=== PATIENT | male | born 1965 | race Two or more races ===

== ENCOUNTER 2017-06-10 21:03 | Emergency (ER) | payer OTHER ==
[~2017-06-10] VITALS: Ht 172.7 cm; Wt 81.6 kg
[2017-06-10] MEDS ORDERED: LIDOCAINE 1% INJ 50 ML MDV IJ ONE ×2 (23:00→23:22)
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
--- NOTE | 2017-06-10 23:35 | NUR ---
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
[2017-06-11 00:10] VITALS: BP 133/86
== END 2017-06-11 00:11 | disposition home or self-care (01) ==
LOC: ER 21:10
DX: L03.012 Cellulitis of left finger (principal)
CPT/HCPCS: 10060; 73140; 99284; A4606; J3490; Z7610; A6402

== ENCOUNTER 2019-02-25 14:37 | Emergency (ER) | payer MEDICAID, OTHER ==
[~2019-02-25] VITALS: Ht 170.2 cm; Wt 81.6 kg
[2019-02-25] MEDS ORDERED: IPRATROPIUM NEB FS 0.5 MG/2.5 ML AMPUL.NEB NEB ONE (16:00)
[2019-02-25] MEDS ORDERED: ALBUTEROL FS 2.5 MG/3 ML VIAL.NEB NEB ONE (16:00)
[2019-02-25] MEDS ORDERED: IPRATROPIUM NEB FS 0.5 MG/2.5 ML AMPUL.NEB ONE (16:31)
[2019-02-25] MEDS ORDERED: ALBUTEROL FS 2.5 MG/3 ML VIAL.NEB ONE (16:31)
--- NOTE | 2019-02-25 16:51 | NUR ---
The patient was discharged in stable condition; no acute events reported. The patient was instructed to follow up with his primary care physician; verbal last understanding of care
[2019-02-25 16:53] VITALS: BP 145/78
== END 2019-02-25 16:54 | disposition home or self-care (01) ==
LOC: ER 14:37
DX: J06.9 Acute upper respiratory infection, unspecified (principal); J98.01 Acute bronchospasm; R09.81 Nasal congestion; R42 Dizziness and giddiness; Z87.891 Personal history of nicotine dependence; Z60.2 Problems related to living alone

== ENCOUNTER 2020-05-25 11:17 | Emergency (ER) | payer MEDICAID, OTHER ==
[~2020-05-25] VITALS: Ht 167.6 cm; Wt 81.6 kg
--- NOTE | 2020-05-25 12:17 | NUR ---
covid swab test done and sent to lab
--- NOTE | 2020-05-25 12:30 | NUR ---
Patient discharged to home in stable condition. Written and verbal after care instructions given. Patient verbalizes understanding of instruction. SELF -QUARANTINE INSTRUCTED THE PATIENT NEEDS TO FOLLOW UP WITH HIS COVID RESULTS THIS SATURDAY - 05/27/2020 OFF WORK UNTIL THEN THE PATIENT VERBALIZED UNDERSTANDING OF CARE
[2020-05-25 12:32] VITALS: BP 159/98
== END 2020-05-25 12:34 | disposition home or self-care (01) ==
LOC: ER 11:27
DX: U07.1 COVID-19 (principal); R50.9 Fever, unspecified; R51.9 Headache, unspecified; R03.0 Elevated blood-pressure reading, without diagnosis of hypertension
CPT/HCPCS: 87804; 99283; C9803; U0003

== ENCOUNTER 2020-06-06 21:15 | Emergency (ER) | payer OTHER ==
[~2020-06-06] VITALS: Ht 175.3 cm; Wt 81.6 kg
[2020-06-06 21:52] LABS: BASOPHILS # (AUTO) 0.1 /CMM (0.0-0.2); BASOPHILS % (AUTO) 0.8 % (0.0-2.0); HEMATOCRIT 41 % (39-51); HEMOGLOBIN 13.6 g/dL (13.5-17.5); LYMPHOCYTES # (AUTO) 1.9 /CMM (0.8-4.8); LYMPHOCYTES % (AUTO) 16.9 % (20.0-44.0); MEAN CORPUSCULAR HGB CONC 34 g/dl (31.0-36.0); MEAN CORPUSCULAR VOLUME 86 fL (80-96); MONOCYTES # (AUTO) 0.8 /CMM (0.1-1.30); MONOCYTES % (AUTO) 7.1 % (2.0-12.0); NEUTROPHILS # (AUTO) 8.2 /CMM (1.8-8.9); NEUTROPHILS % (AUTO) 73.2 % (43.0-81.0); PLATELET COUNT (AUTO) 319 /CMM (150-450); RED BLOOD CELL COUNT(AUTO) 4.71 MIL/uL (4.5-6.0); WHITE BLOOD COUNT (AUTO) 11.2 K/uL (4.3-11.0)
[2020-06-06] MEDS ORDERED: IV NS 0.9% 1,000 ML BAG IV ONE (22:00)
--- NOTE | 2020-06-06 22:03 | NUR ---
C/O SOB. FROM HOME. COVID (+) POSITIVE ON THE May. AAOX4. BREATHING EVENLY AND UNLABORED ON ROOM AIR. CONNECTED TO MONITOR.
[2020-06-06 22:05] LABS: CALCIUM, SERUM 8.8 mg/dL (8.5-10.1); CARBON DIOXIDE 24 mmol/L (21-32); CHLORIDE 103 mmol/L (98-107); GLUCOSE 200 mg/dL (74-106); POTASSIUM 3.4 mmol/L (3.5-5.1); SODIUM SERUM 136 mmol/L (136-145); UREA NITROGEN, BLOOD 14 mg/dL (7-18)
[2020-06-06 22:17] LABS: ALANINE AMINOTRANSFERASE 137 U/L (12-78); ALBUMIN 3.2 g/dL (3.4-5.0); ALKALINE PHOSPHATASE 140 U/L (46-116); ASPARTATE AMINOTRANSFERASE 119 U/L (15-37); BILIRUBIN,DIRECT 0.5 mg/dL (0.0-0.2); BILIRUBIN,TOTAL 0.9 mg/dL (0.2-1.0); TOTAL PROTEIN, SERUM 7.6 g/dL (6.4-8.2)
[2020-06-06 22:42] LABS: D-DIMER 0.73 mg/L(FEU (0.17-0.50)
[2020-06-06] MEDS ORDERED: IOHEXOL-350 100 ML VIAL IV ONE (23:00)
[2020-06-06] MEDS ORDERED: IV NS 0.9% 250 ML IV ONE (23:01)
--- NOTE | 2020-06-06 23:15 | NUR ---
SENT TO [facility]
--- NOTE | 2020-06-06 23:56 | NUR ---
Patient discharged to home in stable condition. Written and verbal after care instructions given. Patient verbalizes understanding of instruction.IV removed. Catheter intact and site benign. Pressure and 4x4 applied to site. No bleeding noted.pt. ambulatory with a steady gait
[2020-06-06 23:57] VITALS: BP 107/85
== END 2020-06-06 23:58 | disposition home or self-care (01) ==
LOC: ER 21:16
DX: R07.89 Other chest pain (principal); U07.1 COVID-19; R73.9 Hyperglycemia, unspecified; R79.1 Abnormal coagulation profile; R91.8 Other nonspecific abnormal finding of lung field; R94.31 Abnormal electrocardiogram [ECG] [EKG]
CPT/HCPCS: 36415; 71045; 71275; 80048; 80076; 83605; 84484; 85025; 85378; 85730; 87040 ×2; 93005; 96360; 99285; J7030; J7050; Q9967

== ENCOUNTER 2021-10-13 15:41 | Emergency (ER) | payer OTHER ==
[~2021-10-13] VITALS: Ht 167.6 cm; Wt 93.0 kg
[2021-10-13 15:48] VITALS: BP 145/92
--- NOTE | 2021-10-13 15:53 | NUR ---
SEEN BY DR CHI,X-RAY ORDERED
[2021-10-13] MEDS ORDERED: KETOROLAC TROMETHAMINE INJ 30 MG/ML VIAL ONE (15:59)
[2021-10-13] MEDS ORDERED: KETOROLAC TROMETHAMINE INJ 30 MG/ML VIAL IM ONE (16:00)
--- NOTE | 2021-10-13 16:00 | NUR ---
DETECTIVE CHIEF AT BEDSIDE FOR XRAY.
[2021-10-13] MEDS ORDERED: ACET-2605 PO (16:57)
[2021-10-13] MEDS ORDERED: IBUP-1957 PO (16:57)
--- NOTE | 2021-10-13 17:10 | NUR ---
Patient discharged to home in stable condition. Written and verbal after care instructions given. Patient verbalizes understanding of instruction.
== END 2021-10-13 17:11 | disposition home or self-care (01) ==
LOC: ER 15:54
DX: M71.522 Other bursitis, not elsewhere classified, left elbow (principal); Z60.2 Problems related to living alone; W18.39XA Other fall on same level, initial encounter; Y93.89 Activity, other specified; Y92.89 Other specified places as the place of occurrence of the external cause; Y99.8 Other external cause status
CPT/HCPCS: 73080; 96372; 99283; J1885

== ENCOUNTER 2022-01-06 11:07 | Emergency (ER) | payer OTHER ==
[~2022-01-06] VITALS: Ht 167.6 cm; Wt 93.0 kg
[~2022-01-06 11:07] MED LIST: ACET-2605 PO; IBUP-1957 PO
--- NOTE | 2022-01-06 11:25 | NUR ---
Pt states "PMD gave me medication but sometimes I forget" Denies any symptom
[2022-01-06] MEDS ORDERED: ACETAMINOPHEN ES 500 MG TABLET ONE (11:35)
[2022-01-06 11:38] VITALS: BP 139/95
--- NOTE | 2022-01-06 11:38 | NUR ---
Patient discharged to home in stable condition. Written and verbal after care instructions given. Patient verbalizes understanding of instruction.
[2022-01-06] MEDS ORDERED: MECL-159 PO (11:39)
[2022-01-06] MEDS ORDERED: ROSU20TA32 PO (11:39)
[2022-01-06] MEDS ORDERED: AMLO-212 PO (11:39)
[2022-01-06] MEDS ORDERED: ACETAMINOPHEN ES 500 MG TABLET PO ONE (12:00)
== END 2022-01-06 11:39 | disposition home or self-care (01) ==
LOC: ER 11:15
DX: I10 Essential (primary) hypertension (principal); Z60.2 Problems related to living alone

== ENCOUNTER 2022-04-28 14:53 | Emergency (ER) | payer MEDICAID, OTHER ==
[~2022-04-28] VITALS: Ht 167.6 cm; Wt 94.3 kg
[~2022-04-28 14:53] MED LIST changes: -ACET-2605 PO; +AMLO-212 PO; -IBUP-1957 PO; +MECL-159 PO; +ROSU20TA32 PO
--- NOTE | 2022-04-28 15:05 | NUR ---
BIBS C/O LIGHTHEADED, FEELING "FAINT" NAUSEA SINCE YESTERDAY. AMBULATORY, PLACED ON BED,AAOX4, BREATHING EVEN AND UNLABORED SATURATING AT 97%RA
[2022-04-28] MEDS ORDERED: IV NS 0.9% 1,000 ML BAG IV ONE (15:30)
--- NOTE | 2022-04-28 15:50 | NUR ---
BLOOD DRAWN AND SENT TO LAB
[2022-04-28 16:06] LABS: BASOPHILS % (AUTO) 0.4 % (0.0-2.0); EOSINOPHILS % (AUTO) 0.6 % (0.0-6.0); HEMATOCRIT 42 % (39-51); LYMPHOCYTES # (AUTO) 1.4 K/uL (0.8-4.8); LYMPHOCYTES % (AUTO) 12.4 % (20.0-44.0); MEAN CORPUSCULAR HGB CONC 34 g/dl (31.0-36.0); MEAN CORPUSCULAR VOLUME 86 fL (80-96); MONOCYTES # (AUTO) 0.7 K/uL (0.1-1.30); MONOCYTES % (AUTO) 5.6 % (2.0-12.0); NEUTROPHILS # (AUTO) 9.4 K/uL (1.8-8.9); PLATELET COUNT (AUTO) 202 K/uL (150-450); RED BLOOD CELL COUNT(AUTO) 4.82 MIL/uL (4.5-6.0); WHITE BLOOD COUNT (AUTO) 11.6 K/uL (4.3-11.0)
[2022-04-28 16:38] LABS: ALANINE AMINOTRANSFERASE 47 U/L (12-78); ALBUMIN 3.8 g/dL (3.4-5.0); ALKALINE PHOSPHATASE 91 U/L (46-116); ASPARTATE AMINOTRANSFERASE 37 U/L (15-37); BILIRUBIN,DIRECT 0.4 mg/dL (0.0-0.2); BILIRUBIN,TOTAL 0.9 mg/dL (0.2-1.0); CALCIUM, SERUM 8.8 mg/dL (8.5-10.1); CARBON DIOXIDE 29 mmol/L (21-32); CHLORIDE 106 mmol/L (98-107); GLUCOSE 136 mg/dL (74-106); POTASSIUM 3.5 mmol/L (3.5-5.1); SODIUM SERUM 141 mmol/L (136-145); TOTAL PROTEIN, SERUM 7.6 g/dL (6.4-8.2); UREA NITROGEN, BLOOD 12 mg/dL (7-18)
--- NOTE | 2022-04-28 17:25 | NUR ---
WIFES NUMBER IS [phone]
[2022-04-28] MEDS ORDERED: ACETAMINOPHEN ES 500 MG TABLET ONE (17:39)
--- NOTE | 2022-04-28 17:43 | NUR ---
IV removed. Catheter intact and site benign. Pressure and 4x4 applied to site. No bleeding noted.Patient discharged to home in stable condition. Written and verbal after care instructions given. Patient verbalizes understanding of instruction.
[2022-04-28 17:49] VITALS: BP 135/85
[2022-04-28] MEDS ORDERED: ACETAMINOPHEN ES 500 MG TABLET PO ONE (18:00)
== END 2022-04-28 17:43 | disposition home or self-care (01) ==
LOC: ER 15:02
DX: R55 Syncope and collapse (principal); I10 Essential (primary) hypertension; E78.5 Hyperlipidemia, unspecified; Z60.2 Problems related to living alone; Z79.899 Other long term (current) drug therapy
CPT/HCPCS: 99285; 96360; 70450; 71045; 93005; 85025; 80048; 80076; 36415; 84484; 82962; J7030

== ENCOUNTER 2023-05-08 10:09 | Emergency (ER) | payer OTHER ==
[~2023-05-08] VITALS: Ht 170.2 cm; Wt 90.7 kg
[2023-05-08 10:58] LABS: BASOPHILS # (AUTO) 0.1 K/uL (0.0-0.2); BASOPHILS % (AUTO) 1.1 % (0.0-2.0); EOSINOPHILS % (AUTO) 0.5 % (0.0-6.0); HEMATOCRIT 42 % (39-51); HEMOGLOBIN 14.3 g/dL (13.5-17.5); LYMPHOCYTES # (AUTO) 1.8 K/uL (0.8-4.8); LYMPHOCYTES % (AUTO) 32.6 % (20.0-44.0); MEAN CORPUSCULAR HEMOGLOBIN 30 PG (26.0-33.0); MEAN CORPUSCULAR HGB CONC 34 g/dl (31.0-36.0); MEAN CORPUSCULAR VOLUME 87 fL (80-96); MONOCYTES # (AUTO) 0.4 K/uL (0.1-1.30); MONOCYTES % (AUTO) 6.7 % (2.0-12.0); NEUTROPHILS # (AUTO) 3.3 K/uL (1.8-8.9); NEUTROPHILS % (AUTO) 59.1 % (43.0-81.0); PLATELET COUNT (AUTO) 185 K/uL (150-450); RED BLOOD CELL COUNT(AUTO) 4.82 MIL/uL (4.5-6.0); RED CELL DISTRIBUTION WIDTH 13.1 % (11.5-15.0); WHITE BLOOD COUNT (AUTO) 5.7 K/uL (4.3-11.0)
[2023-05-08 11:03] LABS: INR 1.06 (0.91-1.10); PROTHROMBIN TIME 11.2 SECS (9.2-11.1)
[2023-05-08 11:07] LABS: CALCIUM, SERUM 9.1 mg/dL (8.5-10.1); CARBON DIOXIDE 26 mmol/L (21-32); CHLORIDE 103 mmol/L (98-107); CREATININE 0.8 mg/dL (0.6-1.3); GLUCOSE 110 mg/dL (74-106); POTASSIUM 3.5 mmol/L (3.5-5.1); SODIUM SERUM 136 mmol/L (136-145); UREA NITROGEN, BLOOD 7 mg/dL (7-18)
[2023-05-08 11:13] LABS: ALANINE AMINOTRANSFERASE 35 U/L (12-78); ALBUMIN 3.9 g/dL (3.4-5.0); ALKALINE PHOSPHATASE 90 U/L (46-116); ASPARTATE AMINOTRANSFERASE 22 U/L (15-37); BILIRUBIN,DIRECT 0.2 mg/dL (0.0-0.2); BILIRUBIN,TOTAL 0.7 mg/dL (0.2-1.0); TOTAL PROTEIN, SERUM 7.9 g/dL (6.4-8.2)
[2023-05-08] MEDS ORDERED: ROSU10TA2 PO (12:06)
[2023-05-08] MEDS ORDERED: MECLIZINE HCL 12.5 MG TABLET PO ONE (12:30)
[2023-05-08] MEDS ORDERED: MECLIZINE HCL 12.5 MG TABLET ONE (12:38)
[2023-05-08] MEDS ORDERED: MECL-159 PO (13:18)
[2023-05-08 13:39] VITALS: BP 160/88; TEMP 98; O2SAT 100
== END 2023-05-08 13:39 | disposition home or self-care (01) ==
LOC: ER 10:09
DX: R42 Dizziness and giddiness (principal); I10 Essential (primary) hypertension; E78.5 Hyperlipidemia, unspecified; Z60.2 Problems related to living alone
CPT/HCPCS: 99285; 70450; 71045; 93005; 85025; 80048; 80076; 36415; 84484 ×2; 85730; J8597

== ENCOUNTER 2023-07-16 05:58 | Emergency (ER) | payer OTHER ==
[~2023-07-16] VITALS: Ht 172.7 cm; Wt 81.6 kg
[~2023-07-16 05:58] MED LIST changes: +ROSU10TA2 PO; -ROSU20TA32 PO
[2023-07-16] MEDS ORDERED: IBUPROFEN 600 MG TABLET PO ONE (07:30)
[2023-07-16] MEDS ORDERED: IBUPROFEN 600 MG TABLET ONE (07:31)
[2023-07-16] MEDS ORDERED: IBUP-1955 PO (08:34)
[2023-07-16 08:48] VITALS: BP 132/70; TEMP 98; O2SAT 98
== END 2023-07-16 08:48 | disposition home or self-care (01) ==
LOC: ER 06:03
DX: M79.631 Pain in right forearm (principal); I10 Essential (primary) hypertension; E78.5 Hyperlipidemia, unspecified; Z79.899 Other long term (current) drug therapy
CPT/HCPCS: 73090-TC